=== PATIENT | male | born 1995 | race Asian ===

== ENCOUNTER 2017-03-14 17:37 | Emergency (ER) | payer OTHER ==
[2017-03-14 17:58] VITALS: RESP 16
--- NOTE | 2017-03-14 19:04 | EDPHY ---
H & P Stated Complaint: slipped on ice fell lac to chin denies loc and neck pain Time Seen by Provider: 03/14/17 19:03 HPI/ROS: HPI: This is a 21-year-old male who presents with Chief Complaint: slipped on ice fell lac to chin denies loc and neck pain Location:[place]in Quality: Laceration Duration: 1-2 hours prior to arrival Signs and Symptoms: No LOC, no neck pain, no headache No bleeding, no radiation , no numbness, no weakness, no tingling, no decreased range of motion, no difficulty swallowing Timing: Sudden Severity: Moderate Context: Patient was ice skating with his girlfriend, lost his balance and fell directly on the ice, hitting his chin and cutting it. he immediately felt pain and the site started to bleed. He applied direct pressure. Reports that his tetanus is up-to-date. Denies any headache/LOC/neck pain/dental pain. Modifying Factors: Direct pressure Comment: ROS: see HPI Constitutional: No fever, no chills, no weight loss Eyes: No blurred vision Respiratory: No shortness of breath, no cough Cardiovascular: No chest pain Gastrointestinal: No nausea, no vomiting no diarrhea Genitourinary: No dysuria Extremities: No myalgias Neurologic: No weakness, no numbness Skin: No rashes Hematologic: No bruising, no bleeding MEDICAL/SURGICAL/SOCIAL HISTORY: Medical history: Generally healthy. Does not take any regular medications. Surgical history: Denies Social history: Currently in a relationship. CONSTITUTIONAL: Well-developed well-nourished well-appearing male, girlfriend at bedside, awake and alert, no obvious distress HEENT: normocephalic, PERRL, EOMI. no globe entrapment, no raccoon eyes. no Todd signs. Tympanic membranes clear. No tympanic membrane rupture. Nares patent; no septal hematoma. Oropharynx clear, no exudate and moist pink mucosa. No TMJ pain. No malocclusion. no dental trauma. Airway patent. No lymphadenopathy. Chin shows 4 cm horizontal deep laceration. NECK: supple, no midline tenderness, flexion 45 degrees, extension 45 degrees, right and left lateral flexion 45 degrees. No meningismus. Cardiovascular: Normal S1/S2, regular rate, regular rhythm, without murmur rub or gallop. PULMONARY/CHEST: Symmetrical and nontender. no crepitus. Clear to auscultation bilaterally. Good air movement. No accessory muscle usage. ABDOMEN: Soft, nondistended, nontender, no ecchymosis, no rebound, no guarding , no peritoneal signs, no masses or organomegaly. No CVAT. PELVIC: no pain with rocking; bilateral hips flexion 125 degrees, extension 30 degrees, with no pain internal rotation and no pain external rotation. BACK: No midline tenderness, no paraspinous spasm, deep tendon reflexes 2/2, no pain with straight leg raise EXTREMITIES: 2/2 pulses, no deformities, no clubbing, no cyanosis or edema. NEUROLOGICAL: no focal neuro deficits. GCS 15. SKIN: Warm and dry, no erythema. no rash. Good capillary refill. Source: Patient Exam Limitations: No limitations - Personal History Current Tetanus/Diphtheria Vaccine: Unsure - Medical/Surgical History Hx Asthma: No Hx Chronic Respiratory Disease: No Hx Diabetes: No Hx Cardiac Disease: No Hx Renal Disease: No Hx Cirrhosis: No Hx Alcoholism: No Hx HIV/AIDS: No Hx Splenectomy or Spleen Trauma: No Other PMH: denies - Social History Smoking Status: Never smoked Constitutional: Initial Vital Signs Temperature (C) 36.6 C 03/14/17 17:55 Heart Rate 89 03/14/17 17:55 Respiratory Rate 16 03/14/17 17:55 Blood Pressure 108/80 03/14/17 17:55 O2 Sat (%) 98 03/14/17 17:55 O2 Delivery Mode Room Air Allergies/Adverse Reactions: No Known Allergies Allergy (Unverified 03/14/17 17:55) Home Medications: Medication Instructions Recorded NK [No Known Home Meds] 03/14/17 Medical Decision Making Procedures: Procedure: Laceration repair. Verbal consent was obtained from the patient. The 4 cm superficial horizontal laceration on the chin was anesthetized in the usual fashion. The wound was irrigated, draped and explored to its base with a gloved finger. There were no deep structures involved. No tendon injury was identified. The wound was repaired with #6, 5-0 PDS. Good hemostasis was achieved and patient tolerated procedure well. The procedure was performed by myself. ED Course/Re-evaluation: Tetanus up-to-date. No LOC Wound care and laceration repair provided Differential Diagnosis: Differential diagnosis includes laceration, mandible fracture, concussion, contusion, dental injury Departure - Departure Disposition: Home, Routine, Self-Care Clinical Impression: Laceration of chin without complication Qualifiers: Encounter type: initial encounter Qualified Code(s): S01.81XA - Laceration without foreign body of other part of head, initial encounter Condition: Good Instructions: Care For Your Absorbable Stitches (ED), Facial Laceration (ED) Additional Instructions: Keep the dressing in place for 48 hours. After 48 hours, you may remove the dressing; wash the site daily with mild soap and water; then pat dry. Take ibuprofen 600 mg every 6-8 hours with food as needed for pain and inflammation. Apply ice for 30 minutes at a time; 2-3 times per day for the next 1-2 days. Today your laceration was repaired with absorbable sutures. The sutures do not need to be removed as they will slowly dissolve over time. Please monitor for signs and symptoms of concussion. If at any time you experience dental pain, please follow-up with your dentist. Referrals: [facility],. [Clinic] - As per Instructions
[2017-03-14 19:56] VITALS: BP 106/72; PULSE 81; TEMP 98.2; O2SAT 97
== END 2017-03-14 19:56 | disposition home or self-care (01) ==
PROC: 0HQ1XZZ Repair Face Skin, External Approach (ICD-10-PCS; principal; 2017-03-14)
DX: S01.81XA Laceration without foreign body of other part of head, initial encounter (principal); W00.0XXA Fall on same level due to ice and snow, initial encounter; Y99.8 Other external cause status; Y93.21 Activity, ice skating